=== PATIENT | female | born 1995 | race Caucasian/White ===

== ENCOUNTER 2018-02-27 17:49 | Emergency (ER) | payer SELFPAY ==
[~2018-02-27] VITALS: Ht 162.6 cm; Wt 87.0 kg
[2018-02-27 18:28] LABS: BASOPHILS # (AUTO) 0.03 x10^3/uL (0-0.3); BASOPHILS % (AUTO) 0 % (0-1); EOSINOPHILS # (AUTO) 0.04 x10^3/uL (0-0.8); EOSINOPHILS % (AUTO) 1 % (1-7); LYMPHOCYTES % (AUTO) 35 % (22-44); MD NO; MEAN CORPUSCULAR HEMOGLOBIN 30.5 pg (27.0-34.8); MEAN CORPUSCULAR HGB CONC 33.5 g/dL (32.4-35.8); MEAN CORPUSCULAR VOLUME 91.1 fL (80-100); MEAN PLATELET VOLUME 8.9 fL (7.4-10.4); MONOCYTES # (AUTO) 0.73 x10^3/uL (0-1.4); MONOCYTES % (AUTO) 8 % (2-9); NEUTROPHILS # (AUTO) 4.81 x10^3/uL (1.8-8.0); NEUTROPHILS % (AUTO) 56 % (42-75); PLATELET COUNT 269 x10^3/uL (130-400); RED BLOOD COUNT 4.27 x10^6/uL (3.82-5.3); RED CELL DISTRIBUTION WIDTH 13.2 % (9.6-15.2)
[2018-02-27 18:41] LABS: ALANINE AMINOTRANSFERASE 16 U/L (12-78); ALBUMIN 3.7 g/dL (3.4-5.0); ANION GAP 8 mmol/L (5-15); CALCIUM 8.5 mg/dL (8.5-10.1); CHLORIDE 108 mmol/L (98-107)
[2018-02-27 18:46] LABS: ALKALINE PHOSPHATASE 62 U/L (45-117); BILIRUBIN,TOTAL 0.3 mg/dL (0.2-1.0); TOTAL PROTEIN 7.5 g/dL (6.4-8.2)
[2018-02-27 19:01] LABS: MICROSCOPIC NOT IND
[2018-02-27 19:07] LABS: CULTURE INDICATED? NO
[2018-02-27 19:46] VITALS: BP 131/94
[2018-02-27] MEDS ORDERED: ONDANSETRON ODT 4 MG PO ONE (20:30)
== END 2018-02-27 20:56 | disposition home or self-care (01) ==
LOC: ED 19:41
DX: R10.31 Right lower quadrant pain (principal); R11.0 Nausea
CPT/HCPCS: 36415; 76830; 80053; 81003; 83690; 84703; 85025; 99285

== ENCOUNTER 2019-11-15 16:16 | Emergency (ER) | payer MEDICAID ==
[~2019-11-15] VITALS: Ht 162.6 cm; Wt 94.1 kg
[2019-11-15 16:20] VITALS: BP 146/92
--- NOTE | 2019-11-15 16:48 | NUR ---
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 CRISTIANO
[2019-11-15] MEDS ORDERED: ONDANSETRON ODT 4 MG PO ONE (17:00)
[2019-11-15] MEDS ORDERED: LORazepam 1MG TABLET PO ONE (17:00)
--- NOTE | 2019-11-15 17:20 | NUR ---
PT STATES SHE FEELS FUZZY WITH STRANGE SENSATION THROAT AND UPPER CHEST AFTER TAKING TWO DIET PILLS TODAY. TO BE MEDICATED PER ORDERS
[2019-11-15] MEDS ORDERED: LORazepam 1MG TABLET ONE (17:25)
[2019-11-15] MEDS ORDERED: ONDANSETRON ODT 4 MG ONE (17:25)
== END 2019-11-15 18:02 | disposition home or self-care (01) ==
LOC: ED 17:45
DX: R11.0 Nausea (principal); T50.905A Adverse effect of unspecified drugs, medicaments and biological substances, initial encounter; R07.89 Other chest pain; R63.0 Anorexia
CPT/HCPCS: 93005; 99283; Q0162

== ENCOUNTER 2019-12-28 22:26 | Emergency (ER) | payer MEDICAID ==
[~2019-12-28] VITALS: Ht 162.6 cm; Wt 98.7 kg
--- NOTE | 2019-12-28 22:50 | NUR ---
ASSUMED CARE OF PT AT THIS TIME FROM TRIAGE, AMBULATORY TO RME FROM TRIAGE WITH STEADY GAIT. ELIZABETH COOL AT BEDSIDE FOR EVALUATION, AWAITING ORDERS. CMS INTACT. PT DENIES ANY INJURY OR TRAUMA, URINARY PAIN OR DIFFICULT. 24 Y/O F REPORTS "MY BACK HAS BEEN HURTING FOR 3 MONTHS." A&OX4. FRIEND AT BEDSIDE. CALL LIGHT IN REACH. FALL PRECUATIONS IN PLACE.
[2019-12-28] MEDS ORDERED: IBUPROFEN 200 MG TABLET ONE (22:53)
[2019-12-28] MEDS ORDERED: METHOCARBAMOL 750 MG TABLET ONE (22:53)
--- NOTE | 2019-12-28 22:58 | NUR ---
PT AMBULATORY TO RESTROOM WITH STEADY GAIT FOR CLEAN CATCH UA, UA COLLECTED AND SENT TO LAB. PT RESTING IN POSITION OF COMFORT. MEDICATED NOTED IN EMAR FOR 9/10 LOW BACK PAIN. FRIEND AT BEDSIDE. CALL LIGHT IN REACH. FALL PRECAUTIONS IN PLACE.
--- NOTE | 2019-12-28 22:59 | NUR ---
UNABLE TO GET MEDICATION ADMIN TO SAVE/TRANSFER IN EMAR WITH MEDICATION AND PT ID SCANNING. 5 RIGHTS VERIFIED PRIOR TO ADMIN OF 800MG IBUPROFEN PO AND 1500 MG ROBAXIN PO ORDERED BY MD AND MANUALLY ENTERED INTO EMAR.
[2019-12-28] MEDS ORDERED: IBUPROFEN 800 MG TABLET PO ONE (23:00)
[2019-12-28] MEDS ORDERED: IBUPROFEN 600 MG TABLET PO ONE (23:00)
[2019-12-28] MEDS ORDERED: METHOCARBAMOL 750 MG TABLET PO ONE (23:00)
--- NOTE | 2019-12-28 23:05 | NUR ---
PT TO RAD
[2019-12-28 23:16] LABS: MICROSCOPIC NOT IND
--- NOTE | 2019-12-28 23:25 | NUR ---
PT BACK FROM RAD, NAD NOTED. PROVIDED WARM BLANKET FOR COMFORT. UA PEND, AWAITING RESULTS. FALL PRECUATIONS IN PLACE
[2019-12-28 23:28] LABS: CULTURE INDICATED? NO
--- NOTE | 2019-12-28 23:55 | NUR ---
ELIZABETH COOL AT BEDSIDE FOR RECHECK, PT REPORTS PAIN IMPROVED TO 5/10. PT TO BE DISCHARGED, AWAITING CHART AND DISCHARGE PAPERS FROM [facility].
[2019-12-29 00:09] VITALS: BP 124/69
== END 2019-12-29 00:12 | disposition home or self-care (01) ==
LOC: ED 23:48
DX: G89.29 Other chronic pain (principal); M54.5 Low back pain; Z88.8 Allergy status to other drugs, medicaments and biological substances
CPT/HCPCS: 72110; 81003; 99284

== ENCOUNTER 2020-01-07 18:37 | Emergency (ER) | payer MEDICAID ==
[~2020-01-07] VITALS: Ht 162.6 cm; Wt 98.8 kg
[2020-01-07 19:17] VITALS: BP 130/83
== END 2020-01-07 20:04 | disposition home or self-care (01) ==
LOC: ED 19:45
DX: S39.012A Strain of muscle, fascia and tendon of lower back, initial encounter (principal); X58.XXXA Exposure to other specified factors, initial encounter; Y93.89 Activity, other specified; Y92.89 Other specified places as the place of occurrence of the external cause; Y99.8 Other external cause status
CPT/HCPCS: 99281

== ENCOUNTER 2020-04-17 12:03 | Emergency (ER) | payer MEDICAID ==
[~2020-04-17] VITALS: Ht 162.6 cm; Wt 94.2 kg
--- NOTE | 2020-04-17 12:32 | NUR ---
PT COMPLAINING OF ABD PAIN THAT SHE DESCRIBES "STABBING/SHARP" IN THE R LQ THAT BEGAN LAST NIGHT WELL HAS DECREASED APPETITIE AND N/V. PT PLACED ON MONITOR. WILL CONTINUE TO MONITOR.
[2020-04-17 13:12] LABS: BASOPHILS # (AUTO) 0.01 x10^3/uL (0-0.1); BASOPHILS % (AUTO) 0 % (0-1); EOSINOPHILS # (AUTO) 0.01 x10^3/uL (0-0.4); EOSINOPHILS % (AUTO) 0 % (1-7); LYMPHOCYTES # (AUTO) 1.38 x10^3/uL (1-3.4); LYMPHOCYTES % (AUTO) 44 % (22-44); MD NO; MEAN CORPUSCULAR HEMOGLOBIN 29.7 pg (27.0-34.8); MEAN CORPUSCULAR HGB CONC 33.3 g/dL (32.4-35.8); MEAN CORPUSCULAR VOLUME 88.9 fL (80-100); MEAN PLATELET VOLUME 8.7 fL (7.4-10.4); MONOCYTES # (AUTO) 0.42 x10^3/uL (0.2-0.8); MONOCYTES % (AUTO) 13 % (2-9); NEUTROPHILS # (AUTO) 1.32 x10^3/uL (1.8-6.8); NEUTROPHILS % (AUTO) 42 % (42-75); PLATELET COUNT 211 x10^3/uL (130-400); RED BLOOD COUNT 4.36 x10^6/uL (3.82-5.3); RED CELL DISTRIBUTION WIDTH 13.5 % (9.6-15.2)
[2020-04-17 13:14] LABS: MICROSCOPIC AUTO
[2020-04-17 13:20] LABS: ANION GAP 6 mmol/L (5-15); CALCIUM 8.5 mg/dL (8.5-10.1); CHLORIDE 107 mmol/L (98-107)
[2020-04-17 13:21] LABS: ALANINE AMINOTRANSFERASE 20 U/L (12-78); ALBUMIN 3.5 g/dL (3.4-5.0)
[2020-04-17 13:25] LABS: ALKALINE PHOSPHATASE 47 U/L (45-117); BILIRUBIN,TOTAL 0.4 mg/dL (0.2-1.0); TOTAL PROTEIN 7.2 g/dL (6.4-8.2)
[2020-04-17] MEDS ORDERED: OMNIPAQUE 350 MG/ML, 100ML BOTTLE ONE (14:19)
[2020-04-17 15:06] VITALS: BP 107/63
== END 2020-04-17 15:08 | disposition home or self-care (01) ==
LOC: ED 14:30
DX: U07.1 COVID-19 (principal); J18.9 Pneumonia, unspecified organism; R10.9 Unspecified abdominal pain; R11.2 Nausea with vomiting, unspecified; F17.200 Nicotine dependence, unspecified, uncomplicated
CPT/HCPCS: 36415; 74177; 80053; 81001; 84703; 85025; 87086; 99285; Q9967; U0001

== ENCOUNTER 2020-06-28 12:18 | Emergency (ER) | payer MEDICAID ==
[~2020-06-28] VITALS: Ht 162.6 cm; Wt 95.0 kg
--- NOTE | 2020-06-28 12:58 | NUR ---
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
--- NOTE | 2020-06-28 13:13 | NUR ---
visualized dihescence R breast approx 1 cm. small amt yellow drainage seen on 2x2. pt c/o odor, unable to smell (but wearing a mask). denies fevers. no redness. call alonso. as
[2020-06-28 13:30] VITALS: BP 114/76
--- NOTE | 2020-06-28 14:18 | NUR ---
page out to plastics. awaiting . as
== END 2020-06-28 14:51 | disposition left against medical advice (07) ==
LOC: ED 14:45
DX: T81.30XA Disruption of wound, unspecified, initial encounter (principal); L76.82 Other postprocedural complications of skin and subcutaneous tissue; Z88.9 Allergy status to unspecified drugs, medicaments and biological substances
CPT/HCPCS: 99281